=== PATIENT | female | born 1970 | race Caucasian/White ===

== ENCOUNTER 2020-05-11 08:14 | Day surgery (SDC) | payer OTHER ==
[~2020-05-11] VITALS: Ht 147.3 cm; Wt 65.9 kg
[~2020-05-11 08:14] MED LIST: AMOXICILLIN 8751 TAB PO; CLARITIN 1010 MG/TAB PO; MOTRIN 200200 MG/TAB PO; VALTREX 50500 MG/TAB PO; ZESTRIL 20MG TA20 MG PO; ZESTRIL30 MG PO
[2020-05-11 08:53] VITALS: BP 138/83; PULSE 59; TEMP 97.6
[2020-05-11 10:45] VITALS: BP 132/70; PULSE 54; TEMP 97.8
--- NOTE | 2020-05-11 10:45 | NUR ---
Pt to GI bay 3 via cart from [facility]. Pt awakens easily to name call. Pt denies pain or nausea. Pt ambulates to recliner with stand by assist x2. in room. Juice and crackers provided per pt request. Warm blankets placed on pt. Will continue to monitor. Call light within reach.
[2020-05-11 11:00] VITALS: BP 127/73; PULSE 64
--- NOTE | 2020-05-11 11:00 | NUR ---
Pt continues to rest. Tolerating food and fluids without difficulties. Call light within reach.
[2020-05-11 11:15] VITALS: BP 137/75; PULSE 52
--- NOTE | 2020-05-11 11:15 | NUR ---
IV site discontinued with all parts intact. Pt up to dress. Call light within reach.
--- NOTE | 2020-05-11 11:30 | NUR ---
Discharge instructions reviewed. Pt voices understanding. Pt escorted to private car via wheel chair. Pt accompanied home by her .
== END 2020-05-11 11:30 | disposition home or self-care (01) ==
LOC: SDCO 08:14
DX: Z12.11 Encounter for screening for malignant neoplasm of colon (principal); K57.30 Diverticulosis of large intestine without perforation or abscess without bleeding; K64.8 Other hemorrhoids; I10 Essential (primary) hypertension; R87.810 Cervical high risk human papillomavirus (HPV) DNA test positive; Z79.899 Other long term (current) drug therapy; Z88.1 Allergy status to other antibiotic agents; Z88.5 Allergy status to narcotic agent
CPT/HCPCS: J2704; J3010; J7120